=== PATIENT | female | born 1955 ===

== ENCOUNTER → 2016-10-11 | Outpatient (CLI) | payer OTHER | END | disposition home or self-care (01) | LOC: MMGSC 16:27 | PROVIDERS: ATTEND Family Medicine | DX: R82.90 Unspecified abnormal findings in urine (principal) | CPT/HCPCS: 87077; 87086; 87186 ==

== ENCOUNTER → 2017-02-16 | Outpatient (CLI) | payer OTHER ==
[2017-02-16 21:04] LABS: Basophils % (A) 1 %; CH 29.9; CHCM 31.1; Eosinophils # (A) 0.2 k/uL (0-0.7); Eosinophils % (A) 3 %; HCT 44.2 % (34.0-46.0); HGB 13.7 gm/dL (11.4-16.0); Luc % (Auto) 2; Lymphocytes # (A) 1.3 k/uL (1.0-4.8); Lymphocytes % (A) 24 %; MCV 96.6 fL (80.0-100.0); Mean Platelet Volume 8.3; Monocytes # (A) 0.3 k/uL (0-1.0); Monocytes % (A) 6 %; Neutrophils # (A) 3.4 k/uL (1.3-7.7); Neutrophils % (A) 65 %; RBC 4.58 m/uL (3.80-5.40); RDW 13.2 % (11.5-15.5); WBC 5.3 k/uL (3.8-10.6)
[2017-02-16 21:16] LABS: ALT 37 U/L (9-52); AST 31 U/L (14-36); Alkaline Phosphatase 72 U/L (38-126); Anion Gap 15 mmol/L; Blood Urea Nitrogen 23 mg/dL (7-17); Calcium 10.3 mg/dL (8.4-10.2); Carbon Dioxide 24 mmol/L (22-30); Chloride 102 mmol/L (98-107); Cholesterol 247 mg/dL (<200); Glucose 94 mg/dL (74-99); HDL Cholesterol 73 mg/dL (40-60); Non-African American GFR(MDRD) 50 (>60 ml/min/1.73 sqM); Sodium 141 mmol/L (137-145); Total Bilirubin 0.8 mg/dL (0.2-1.3); Total Protein 8.4 g/dL (6.3-8.2)
== END ==
LOC: MMGSC 11:14
PROVIDERS: ATTEND Family Medicine
DX: Z00.00 Encounter for general adult medical examination without abnormal findings (principal)
CPT/HCPCS: 36415; 80053; 80061; 84439; 84443; 85025

== ENCOUNTER → 2017-08-20 | Outpatient (CLI) | payer OTHER ==
[2017-08-20 19:52] LABS: Cholesterol 235 mg/dL (<200); HDL Cholesterol 60 mg/dL (40-60); LDL Cholesterol,Calculated 127 mg/dL (0-99); Triglycerides 240 mg/dL (<150)
[2017-08-22 03:13] LABS: Hemoglobin A1C 5.2 % (4.0-6.0)
== END | disposition home or self-care (01) ==
LOC: MMGSC 10:42
PROVIDERS: ATTEND Family Medicine
DX: E78.5 Hyperlipidemia, unspecified (principal)
CPT/HCPCS: 36415; 80061; 82947; 83036

== ENCOUNTER → 2018-07-04 | Outpatient (CLI) | payer OTHER ==
--- NOTE | 2018-07-04 10:30 | US ---
EXAMINATION TYPE: US abdomen complete DATE OF EXAM: 07/04/2018 COMPARISON: NONE CLINICAL HISTORY: R10.9 abdominal pain. UTI, lower and pelvis hard abd EXAM MEASUREMENTS: Liver Length: 12.8 cm Gallbladder Wall: 0.2 cm CBD: 0.4 cm Spleen: 9.8 cm Right Kidney: 8.7 x 4.8 x 5.0 cm Left Kidney: 7.1 x 3.4 x 3.0 cm Pancreas: Tail obscured by overlying bowel gas Liver: wnl Gallbladder: wnl Evidence for sonographic Norwood's sign: No CBD: wnl Spleen: wnl Right Kidney: No hydronephrosis or masses seen small cortical cyst, kidney measures small Left Kidney: No hydronephrosis or masses seen small cortical cyst, kidney measures small Upper IVC: wnl Abd Aorta: wnl large mixed mass lower abd, and pelvis vascular, 15.1 x15.9 x 8.9 cm The visualized liver is homogenous. The intrahepatic portion of the IVC and proximal abdominal aorta are within normal limits. There is no evidence of cholelithiasis. Common bile duct is unremarkable . The visualized portions of the pancreas are homogenous. The spleen is unremarkable. Kidneys are symmetric and free of hydronephrosis. No suspicious solid renal lesions are seen. IMPRESSION: Large complex solid and cystic mass occupies the lower abdomen and pelvis with significan t local mass effect. Not typical appearance of fibroid uterus. Ovarian mass/neoplasm needs to BE excl uded. Contrast-enhanced CT advised to better evaluate and characterize.
== END | disposition home or self-care (01) ==
LOC: RADUSWWP 06:58
PROVIDERS: ATTEND Family Medicine
DX: R19.09 Other intra-abdominal and pelvic swelling, mass and lump (principal)
CPT/HCPCS: 76700

== ENCOUNTER → 2018-07-19 | Outpatient (CLI) | payer OTHER ==
--- NOTE | 2018-07-19 16:02 | CT ---
EXAMINATION TYPE: CT abdomen pelvis w con DATE OF EXAM: 07/19/2018 HISTORY: abdominal/pelvic mass CT DLP: 538.5mGycm Automated Exposure Control for Dose Reduction was Utilized. CONTRAST: CT scan of the abdomen and pelvis is performed with IV Contrast, patient injected with 80 mL of Isovu e 300. COMPARISON: Abdominal ultrasound dated 07/04/2018. FINDINGS: LUNG BASES: No significant abnormality is appreciated. LIVER/GB: There is a suspicious 1.5 cm hepatic lesion directly adjacent to a subserosal implant seen on series 3 image 16. This is favored to represent a true hepatic lesion versus liver parenchymal inv asion. No other suspicious hepatic lesions are seen. PANCREAS: On coronal imaging the pancreatic head is bulbous however there is suspected mesenteric imp lants surrounding the pancreatic head. SPLEEN: No significant abnormality is seen. ADRENALS: No significant abnormality is seen. KIDNEYS: There is slight left renal atrophy in comparison to the right kidney with discrepancy of siz e. Right renal cyst measures 1 cm. Kidneys enhance and excrete symmetrically. BOWEL: There is a small hiatal hernia. Bowel is displaced by the large mass and mesenteric masses. No dilated bowel. UTERUS/ADNEXA: There is a large pelvic mass measuring 19.2 x 15.6 x 17.9 cm in transverse by anterior posterior by craniocaudal dimension. There is complexity with peripheral calcifications, numerous so lid mural nodules, and thickened internal septations. This extends from the low pelvis to the level o f the umbilicus. This displaces numerous loops of small and large bowel and impresses upon the inferi or vena cava. This also impresses upon the urinary bladder. 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 A more nodular density i s seen at the subserosal surface of the liver near the fissure for the falciform ligament on series 3 image 18 that appears to represent a loop of small bowel on axial images however on coronal and sagi ttal images this appears as a subserosal implant without liver parenchymal invasion. This measures 3. 7 cm in anterior posterior dimension. Numerous other mesenteric masses are seen with the largest in t he right mid abdomen measuring 5.8 x 3.2 cm representing peritoneal carcinomatosis/mesenteric implant s. LYMPH NODES: No greater than 1cm abdominal or pelvic lymph nodes are appreciated. OSSEOUS STRUCTURES: There is grade 2 anterolisthesis of L5 on S1 secondary to bilateral pars interart icularis defects. There is grade 1 anterolisthesis of L4 on L5. Mild multilevel degenerative changes of the spine are seen. 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 Origin is likely ovarian. If tissue morena gnosis is needed mesenteric mass biopsy could be considered. Case was discussed with Dr. Osorio at 15:56 on 07/19/[address] Hodges.
== END | disposition home or self-care (01) ==
LOC: RADCTMAIN 12:48
PROVIDERS: ATTEND Family Medicine
DX: R19.07 Generalized intra-abdominal and pelvic swelling, mass and lump (principal)
CPT/HCPCS: 82565; 84520; 74177; 36415; Q9967

== ENCOUNTER → 2023-12-21 | Outpatient (CLI) | payer MEDICARE | END | disposition home or self-care (01) | LOC: LABPRL 12:00 | PROVIDERS: ATTEND Family Medicine | DX: E87.8 Other disorders of electrolyte and fluid balance, not elsewhere classified (principal) | CPT/HCPCS: 80053; 84100 ==